=== PATIENT | female | born 1980 | race Caucasian/White ===

== ENCOUNTER 2019-01-15 09:27 | Emergency (ER) | payer OTHER ==
[~2019-01-15] VITALS: Ht 162.6 cm; Wt 72.0 kg
[2019-01-15] MEDS ORDERED: SODIUM CHLORIDE 0.9% 1,000 ML IV ONE (10:00)
[2019-01-15] MEDS ORDERED: LORAZEPAM 2MG/ML CPJ IV ONE (10:00)
[2019-01-15 10:22] LABS: BASOPHILS % 1.1 % (0.0-2.0); EOSINOPHILS % 6.3 % (0.0-5.0); HEMATOCRIT. 36.7 % (36.0-48.0); HEMOGLOBIN. 12.2 g/dL (12.0-16.0); LYMPHOCYTES % 25.5 % (20.0-50.0); MEAN CORPUSCULAR HEMOGLOBIN 27.5 pg (28.0-32.0); MEAN CORPUSCULAR VOLUME 82.3 fL (81.0-99.0); MEAN PLATELET VOLUME 8.7 fl (7.4-10.4); MONOCYTES % 5.9 % (2.0-8.0); NEUTROPHILS % 61.2 % (40.0-76.0); PLATELET 378 x1000/uL (130-400); RED BLOOD CELL COUNT 4.46 mill/uL (4.2-5.4)
[2019-01-15 10:26] LABS: CHLORIDE 107 mEq/L (98-107); HCG SCREEN NEGATIVE
[2019-01-15 10:29] LABS: INR 0.9; PARTIAL THROMBOPLASTIN TIME 28.8 sec (23.4-31.0); PROTHROMBIN TIME 9.5 sec (9.6-11.0)
[2019-01-15 10:30] LABS: ETHANOL BLOOD < 10 mg/dL
[2019-01-15 12:04] LABS: *AMPHETAMINES SCREEN URINE NEGATIVE (NEGATIVE); *BARBITURATES SCREEN URINE NEGATIVE (NEGATIVE); *COCAINE SCREEN URINE NEGATIVE (NEGATIVE)
[2019-01-15 12:06] LABS: *BENZODIAZEPINES SCREEN URINE NEGATIVE (NEGATIVE); CANNABINOID URINE SCREEN NEGATIVE (NEGATIVE); METHADONE URINE SCREEN NEGATIVE (NEGATIVE); OPIATES URINE SCREEN NEGATIVE (NEGATIVE)
[2019-01-15 12:08] LABS: PHENCYCLIDINE URINE SCREEN NEGATIVE (NEGATIVE)
[2019-01-15] MEDS ORDERED: KETOROLAC 30MG/ML VIAL IV ONE (12:15)
[2019-01-15 16:03] VITALS: BP 123/81
== END 2019-01-15 16:00 | disposition home or self-care (01) ==
LOC: ER 09:27
DX: S06.0X9A Concussion with loss of consciousness of unspecified duration, initial encounter (principal); F32.9 Major depressive disorder, single episode, unspecified; F41.9 Anxiety disorder, unspecified; Z88.8 Allergy status to other drugs, medicaments and biological substances; W22.8XXA Striking against or struck by other objects, initial encounter; Y93.89 Activity, other specified; Y92.810 Car as the place of occurrence of the external cause
CPT/HCPCS: 36415; 70450; 70551; 72125; 80048; 80305; 80307; 80320; 80329; 82962; 84703; 85025; 85610; 85730; 93005; 96374; 96375; 99284; J1885; J2060; J7030; G0480